=== PATIENT | female | born 1975 | race African-American/Black ===

== ENCOUNTER 2017-01-09 08:02 | Outpatient (CLI) | payer MEDICAID ==
[2017-01-08 13:49] LABS: HEMATOCRIT 24.7 % (36.0-48.0); MCHC 25.9 g/dL (31.0-37.0); MCV 73.7 fL (80.0-100.0); MEAN PLATELET VOLUME 8.1 fL (7.4-10.4); RBC 3.35 10x6/uL (4.00-5.40); RDW 21.1 % (11.5-14.5); WBC 8.8 10x3/uL (4.8-10.8)
[2017-01-08 13:58] LABS: HEMOGLOBIN 6.4 g/dL (12-16); MCH 19.1 pg (26.0-34.0)
--- NOTE | 2017-01-08 14:11 | NUR ---
01/08/17 1400: CRITICAL LAB VALUES RECEIVED & CALLED TO VIC AT DR. VAUGHN'S OFFICE.
[~2017-01-09] VITALS: Ht 165.1 cm; Wt 72.7 kg
[~2017-01-09 08:02] MED LIST: IBUPROFEN800 MG PO; ULTRAM50 MG PO
[2017-01-09 08:29] LABS: BASOPHILS 0.7 % (0.0-2.0); EOSINOPHILS 2.6 % (0-7); HEMATOCRIT 23.4 % (36.0-48.0); IMMATURE GRANULOCYTES 0.2 % (0-5); LYMPHOCYTES 27.8 % (15-50); MCHC 25.6 g/dL (31.0-37.0); MCV 73.8 fL (80.0-100.0); MEAN PLATELET VOLUME 8.7 fL (7.4-10.4); MONOCYTES 4.2 % (2-11); NEUTROPHILS 64.5 % (40-80); PLATELET COUNT 124 10x3/uL (130-400); RBC 3.17 10x6/uL (4.00-5.40); RDW 21.4 % (11.5-14.5); WBC 9.1 10x3/uL (4.8-10.8)
[2017-01-09 08:53] LABS: MCH 18.9 pg (26.0-34.0)
[2017-01-09 09:28] VITALS: BP 133/79; Ht 165.1 cm; Wt 72.7 kg
--- NOTE | 2017-01-09 19:45 | NUR ---
IV DC WITH CATHER INTACT
== END 2017-01-09 20:18 | disposition home or self-care (01) ==
LOC: D.OPS 08:02 → D.PAN 10:00 → D.OPS 10:00 → EDSTATUS 13:30 → D.OPS 13:30 → D.PAN 13:30 → D.OPS 20:18
PROVIDERS: Anesthesiology; Family Medicine
DX: M75.101 Unspecified rotator cuff tear or rupture of right shoulder, not specified as traumatic (principal); Z53.9 Procedure and treatment not carried out, unspecified reason

== ENCOUNTER 2017-02-27 09:10 | Day surgery (SDC) | payer MEDICAID ==
[2017-02-26 15:14] LABS: HEMATOCRIT 40.2 % (36.0-48.0); HEMOGLOBIN 12.5 g/dL (12-16); MCH 28.6 pg (26.0-34.0); MCHC 31.1 g/dL (31.0-37.0); MEAN PLATELET VOLUME 9.3 fL (7.4-10.4); RBC 4.37 10x6/uL (4.00-5.40); RDW 23.2 % (11.5-14.5); WBC 12.1 10x3/uL (4.8-10.8)
[2017-02-26 15:33] LABS: APPEARANCE CLEAR (CLEAR); COLOR YELLOW (YELLOW); GLUCOSE NEGATIVE (NEGATIVE); KETONE NEGATIVE (NEGATIVE); LEUKOCYTE ESTERASE NEGATIVE (NEGATIVE); NITRITE NEGATIVE (NEGATIVE); PROTEIN NEGATIVE (NEGATIVE); SPECIFIC GRAVITY 1.015 (1.005-1.020); UROBILINOGEN NORMAL (NORMAL)
[2017-02-26 15:34] LABS: BILIRUBIN NEGATIVE (NEGATIVE)
[~2017-02-27] VITALS: Ht 165.1 cm; Wt 74.8 kg
[~2017-02-27 09:10] MED LIST changes: +EZFE 200200 MG PO
[2017-02-27 10:38] VITALS: BP 111/69; Ht 165.1 cm; Wt 74.8 kg
[2017-02-27] MEDS ORDERED: DILAUDID2 MG PO (12:38)
--- NOTE | 2017-02-27 15:46 | NUR ---
1415 IV DC WITH CATHER TIP INTACT =
--- NOTE | 2017-03-03 18:11 | OP ---
PATIENT NAME: JAYNE HARMON MEDICAL RECORD: [id number] :79 LOCATION:[facility] ADMISSION DATE: SURGEON: KATIE VAUGHN MD DATE OF OPERATION: 02/27/2017 Orthopedic Surgery Operative Note PREOPERATIVE DIAGNOSIS: Massive rotator cuff tear of the right shoulder. POSTOPERATIVE DIAGNOSIS: Massive rotator cuff tear of the right shoulder. PROCEDURE: Open rotator cuff repair of the right shoulder with subacromial decompression, distal clavicle excision. ANESTHESIA: General. INTRAOPERATIVE COMPLICATIONS: None. SUMMARY OF PATHOLOGIC FINDINGS: The patient has a tear of the supraspinatus tendinous back to almost the entire infraspinatus tendon, acromioclavicular arthritis and downward sloping of the acromion was noted. OPERATIVE SUMMARY IN DETAIL: After obtaining the appropriate preoperative orthopedic surgery consent as well as anesthetic consultation, evaluation and clearance, the patient was brought to the operating room and placed on the operating table in supine position. After general laryngeal mask airway was administered, the patient was placed in the beach chair position. All pressure points were well padded. She was held firmly to the operating table using the vacuum pack suction system. Right upper extremity and shoulder were then prepped and draped in routine sterile fashion. The arm was held in the Trimano arm holding device. Incision was made for anterolateral approach from the acromioclavicular joint across the anterior aspect of the acromion and down approximately 3 cm. This dissection was carried down for subperiosteal elevation of the deltoid and the anterior and central raphae were split to reveal the large rotator cuff tear. Full acromioplasty was performed to the acromioclavicular joint and 1 cm of the distal clavicle was excised and removed. Having completed this, serial and sequential mobilization of the rotator cuff was done with #2 Ethibond. This required substantial amount of mobilization with a small ____ down the infraspinatus, supraspinatus tendon as well as the teres minor tendon, both on the internal and external aspect. This was then mobilized substantial enough, the apex was identified. A #2 Force Fiber was tied into a lujghs-ej-zxmre at the apex. At this point, the area for reapproximation was gently taken back to bleeding cortex, SpeedBridge from [employer] was utilized with 2 medial row suture anchors, followed by passage of the sutures division and then lateral anchorage. A 4.75 was also utilized in [address] with inverted mattress style 2 Ethibonds for further stabilization of this large rotator cuff tear. Wound was copiously irrigated at this point. The deltoid was reapproximated back to the acromion in a [id number]-yurj-pfby imbricated style suture using FiberWire, followed by #1 Vicryl, 2-0 Vicryl for skin closure, followed by skin sarkis. Sterile dressings were applied. The patient was awakened and taken to the recovery room in stable condition. All final needle and sponge counts were correct. TRANSINT:[id number] Voice Confirmation ID: [id number] DOCUMENT ID: [id number] OPERATIVE REPORT [id number] JAYNE HARMON MD, KATIE NEVILLE at 1811 CC: [id number] DICTATION DATE: 02/28/17 1439 DESTINATION COORDINATOR: 03/01/17 0059 [facility] 02/27/17 [id number] [place] [address]
== END 2017-02-27 14:45 | disposition home or self-care (01) ==
LOC: D.OPS 09:10 → D.PAN 11:15 → D.OPS 11:15 → D.PAN 15:00
PROVIDERS: Anesthesiology; Orthopaedic Surgery
DX: M75.121 Complete rotator cuff tear or rupture of right shoulder, not specified as traumatic (principal); F17.200 Nicotine dependence, unspecified, uncomplicated; Z01.812 Encounter for preprocedural laboratory examination